=== PATIENT | male | born 1990 | race Caucasian/White ===

== ENCOUNTER 2016-05-30 20:21 | Emergency (ER) | payer OTHER ==
[~2016-05-30 20:21] MED LIST: AUGMENTIN PO; NO MEDICATIONS; PERCOCET 5-3251 TAB PO
== END 2016-05-30 20:22 | disposition home or self-care (01) ==
LOC: SED 20:21
DX: R59.1 Generalized enlarged lymph nodes (principal); F17.210 Nicotine dependence, cigarettes, uncomplicated
CPT/HCPCS: 99282